=== PATIENT | female | born 1960 | race Caucasian/White ===

== ENCOUNTER 2019-10-11 09:24 | Outpatient (CLI) | payer BC, SELFPAY ==
[2019-10-11 10:22] LABS: Blood Urea Nitrogen 18 mg/dL (7-17); Carbon Dioxide 31 mmol/L (22-30); Chloride 98 mmol/L (98-107); Cholesterol 154 mg/dL (0-200); Estimated Glomerular Filt Rate > 60; Glucose 142 mg/dL (65-105); HDL Direct 64 mg/dL; Potassium 4.1 mmol/L (3.4-5.0); Sodium 135 mmol/L (137-145); Triglycerides 58 mg/dL (<150)
[2019-10-11 10:33] LABS: LDL Cholesterol Direct 75 mg/dL
[2019-10-11 10:35] LABS: Creatinine Urine 92.7 mg/dL
[2019-10-11 11:23] LABS: MALB Creatinine Ratio < 6.5 mg/g (0-30); Microalbumin Urine Random < 6.0 mg/L (0-16.7)
== END 2019-10-11 09:25 | disposition home or self-care (01) ==
PROVIDERS: PCP Physician Assistant; Visit Provider Internal Medicine Endocrinology, Diabetes & Metabolism
DX: E11.9 Type 2 diabetes mellitus without complications (principal); E88.81 Metabolic syndrome and other insulin resistance
CPT/HCPCS: 36415; 80048; 80061; 82043; 84443

== ENCOUNTER 2020-05-05 09:19 | Outpatient (CLI) | payer OTHER, SELFPAY ==
[2020-05-05 10:16] LABS: Add Urine Microscopic? YES; Appearance Urine Clear (Clear); Bacteria Urine Trace /hpf; Bilirubin Urine Negative (Negative); Blood Urine Negative (Negative); Color Urine Yellow (Yellow); Glucose Urine UA 3+ mg/dL (Negative); Ketones Urine Negative (Negative); Leukocyte Esterase Ur 3+ LEU/UL (NEGATIVE); Nitrate Urine Negative (Negative); Protein Urine Negative (Negative); Squamous Epithelial Cell Urine Many /hpf (Few); Urobilinogen Urine Negative mg/dL (<2.0)
[2020-05-05 10:20] LABS: Specific Grav Ur 1.036 (1.001-1.035)
== END 2020-05-05 09:20 | disposition home or self-care (01) ==
PROVIDERS: PCP Physician Assistant; Visit Provider Physician Assistant
DX: R31.9 Hematuria, unspecified (principal)
CPT/HCPCS: 81001

== ENCOUNTER 2020-11-09 10:49 | Outpatient (CLI) | payer OTHER, SELFPAY ==
[2020-11-09 11:31] LABS: Hematocrit 42.4 % (37.0-47.0); Hemoglobin 13.9 g/dL (12.0-15.0); Mean Corpuscular HGB Conc 32.8 g/dl (32-36); Mean Corpuscular Hemoglobin 30.5 pg (26-34); Mean Platelet Volume 9.3 fl (7.4-10.4); Platelet Count Result 236 k/mm3 (150-375); Red Blood Count 4.56 M/mm3 (4.2-5.4); Red Cell Distribution Width 13.7 % (11.5-14.5); White Blood Count 7.9 K/mm3 (4.5-10.0)
[2020-11-09 11:35] LABS: Add Urine Microscopic? YES; Appearance Urine Cloudy (Clear); Bacteria Urine Trace /hpf; Bilirubin Urine Negative (Negative); Blood Urine Negative (Negative); Color Urine Yellow (Yellow); Glucose Urine UA 3+ mg/dL (Negative); Ketones Urine Negative (Negative); Leukocyte Esterase Ur 3+ LEU/UL (NEGATIVE); Nitrate Urine Negative (Negative); Protein Urine 1+ mg/dL (Negative); Squamous Epithelial Cell Urine Many /hpf (Few); Urobilinogen Urine Negative mg/dL (<2.0)
[2020-11-09 11:38] LABS: Specific Grav Ur 1.037 (1.001-1.035)
[2020-11-09 11:52] LABS: Alanine Aminotransferase 21 U/L (4-35); Albumin Level 3.6 g/dL (3.5-5.1); Alkaline Phosphatase 93 U/L (38-126); Anion Gap 1 mmol/L (8-16); Aspartate Amino Transferase 32 U/L (14-36); Bilirubin,Total 0.7 mg/dL (0.2-1.3); Blood Urea Nitrogen 11 mg/dL (7-17); Carbon Dioxide 33 mmol/L (22-30); Chloride 105 mmol/L (98-107); Cholesterol 138 mg/dL (0-200); Estimated Glomerular Filt Rate > 60; Glucose 110 mg/dL (65-105); HDL Direct 60 mg/dL; Potassium 3.9 mmol/L (3.4-5.0); Sodium 139 mmol/L (137-145); Triglycerides 64 mg/dL (<150)
[2020-11-09 11:59] LABS: LDL Cholesterol Direct 62 mg/dL
[2020-11-09 13:05] LABS: Folic Acid > 20.0 ng/mL (2.76->20)
== END 2020-11-09 10:50 | disposition home or self-care (01) ==
LOC: ANHLAB 10:50
PROVIDERS: PCP Physician Assistant; Visit Provider Physician Assistant
DX: Z00.00 Encounter for general adult medical examination without abnormal findings (principal); R30.0 Dysuria
CPT/HCPCS: 36415; 80053; 80061; 81001; 82607; 82746; 84443; 85027; 87086; 87088

== ENCOUNTER 2021-03-11 12:28 | Outpatient (CLI) | payer OTHER, SELFPAY ==
[2021-03-11 14:12] LABS: Creatinine Urine 75.7 mg/dL
[2021-03-11 14:15] LABS: MALB Creatinine Ratio < 7.9 mg/g (0-30); Microalbumin Urine Random < 6.0 mg/L (0-16.7)
== END 2021-03-11 12:29 | disposition home or self-care (01) ==
PROVIDERS: PCP Physician Assistant; Visit Provider Internal Medicine Endocrinology, Diabetes & Metabolism
DX: E11.65 Type 2 diabetes mellitus with hyperglycemia (principal); Z79.4 Long term (current) use of insulin; I10 Essential (primary) hypertension
CPT/HCPCS: 82043

== ENCOUNTER 2021-06-13 09:59 | Outpatient (CLI) | payer OTHER, SELFPAY ==
--- NOTE | ~2021-06-13 | MM_ITS ---
EXAMINATION: MM screening [facility] BI w prashant HISTORY: Screening TECHNIQUE: Craniocaudal and mediolateral oblique 3-D tomosynthesis images were obtained and synthetic 2-D images were generated. CAD analysis was submitted and interpreted. COMPARISON: Comparison to multiple prior studies sequentially, with oldest reviewed study dated 08/2013. BREAST PARENCHYMAL COMPOSITION: There are scattered areas of fibroglandular density. FINDINGS: No significant change to benign-appearing breast calcifications. There is no evidence of zambrano spicious mass, calcification, or architectural distortion to suggest malignancy in either breast. The re has been no suspicious interval change. IMPRESSION: 1. No mammographic evidence of malignancy. 2. Recommend routine screening mammography in one year. BI-RADS Category 1: Negative Reviewed, dictated and finalized at location A.
== END 2021-06-13 10:00 | disposition home or self-care (01) ==
LOC: ANHIMG 10:00
PROVIDERS: PCP Physician Assistant; Visit Provider Obstetrics & Gynecology
DX: Z12.31 Encounter for screening mammogram for malignant neoplasm of breast (principal)
CPT/HCPCS: 77063; 77067

== ENCOUNTER 2022-01-30 12:02 | Outpatient (CLI) | payer BC, SELFPAY ==
[2022-01-30 12:44] LABS: Alanine Aminotransferase 28 U/L (6-35); Albumin Level 3.7 g/dL (3.5-5.1); Alkaline Phosphatase 122 U/L (38-126); Anion Gap 4 mmol/L (8-16); Aspartate Amino Transferase 33 U/L (14-36); Bilirubin,Total 0.7 mg/dL (0.2-1.3); Blood Urea Nitrogen 10 mg/dL (7-17); Carbon Dioxide 29 mmol/L (22-30); Chloride 104 mmol/L (98-107); Cholesterol 163 mg/dL (0-200); Estimated Glomerular Filt Rate > 60; Glucose 91 mg/dL (65-110); HDL Direct 61 mg/dL; Sodium 137 mmol/L (137-145); Triglycerides 74 mg/dL (<150)
[2022-01-30 12:55] LABS: LDL Cholesterol Direct 69 mg/dL
[2022-01-30 13:05] LABS: Creatinine Urine 77.5 mg/dL
[2022-01-30 13:10] LABS: MALB Creatinine Ratio 13.4 mg/g (0-30); Microalbumin Urine Random 10.4 mg/L (0-16.7)
== END 2022-01-30 12:03 | disposition home or self-care (01) ==
LOC: ANHLAB 12:05
PROVIDERS: PCP Physician Assistant; Visit Provider Internal Medicine Endocrinology, Diabetes & Metabolism
DX: E11.65 Type 2 diabetes mellitus with hyperglycemia (principal); G47.30 Sleep apnea, unspecified; Z79.4 Long term (current) use of insulin
CPT/HCPCS: 36415; 80053; 80061; 82043; 82607; 84443

== ENCOUNTER 2022-05-05 07:57 | Outpatient (CLI) | payer BC, SELFPAY ==
--- NOTE | 2022-05-26 11:58 | WPDSLEEPSTUD ---
Sleep Study Date of Study: 05/05/22 Ordering Provider: Brian Yates APRN Interpreting Physician: Ritika Patrick MD Sleep Study Type: Split Polysomnogram Height: 1.67 m Weight: 146.964 kg Body Mass Index: 52.7 Neck Circumference (inches): 20 [place]: 4 Reason for Sleep Study Long history of obstructive sleep apnea diagnosed 2004, using same machine since diagnosis, CPAP or BiPAP 22 cm at home; her machine is 17 years old and needs to be replaced. At one point after surgery, she was noted to stop breathing. Sleep History Naomi Saldana is a 61 year old female with obstructive sleep apnea diagnosed in 2004, on the same device since that time. She reports that she uses CPAP or BiPAP, 22 cm. Her machine is 17 years gold, and this needs to be replaced. she wakes up throughout the night. She frequently awakens from sleep feeling short of breath. She does not awaken at night with heartburn, belching or coughing. She constantly snores loudly. She occasionally has trouble sleeping with a cold. She constantly wakes up gasping for breath at night. She does not sweat excessively at night or notice her heart pounding or beating irregularly at night. She does not fall asleep during the day, does not fall asleep involuntarily or while driving. She does not have loss of muscle tone with strong emotion. She does not have difficulties during the daytime due to excessive sleepiness. 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 She does not feel paralyzed on waking or falling asleep and does not have vivid dreamlike scenes upon awakening or falling asleep. She occasionally feels afraid to go to sleep, concerned that she will stop breathing. She does not have nightmares. She occasionally remembers her dreams. She does not have racing thoughts, does not have feelings of sadness, depression or anxiety. She does not have muscular tension. She occasionally notices parts of her body jerking. She occasionally kicks at night. She does not have crawling or aching feelings in her legs. She occasionally has leg pain at night. She does not have morning jaw pain. She occasionally grinds her teeth at night. She is not bothered by pain during the day or awakened by pain at night. She occasionally wakes up feeling stiff in the morning with sore achy muscles and pain in the neck and spine. She takes antacids regularly, she is on pantoprazole for GERD. Normal bedtime is 9:00 p.m. falling asleep within 20 minutes typically waking twice at night between 2 and 4:00 a.m. to go to the bathroom, and she is able to return to sleep sometimes within 20 minutes although at times it may take 2 hours for her to fall asleep. She wakes at 5:45 a.m. on days when she works. She keeps the same schedule on weekends. She estimates getting 5 hours of sleep at night. She occasionally takes a nap after working for 8 hours. A short nap of 10 or 15 minutes is not refreshing. She is usually tired for 2 hours after waking. She feels better in afternoon compared to the morning. She has not had a change in her weight over the last year, weighs 330 lb. Habits: never smoked tobacco. Caffeine may be 1 soda on occasion. No alcohol or recreational drugs PMFSH Past Medical History Medical History (Updated 05/26/22 @ 13:25 by Ritika Patrick MD) Anal fistula Glaucoma Hyperlipidemia Hyperlipidemia LDL goal <100 Hypertension Sleep apnea with use of continuous positive airway pressure (CPAP) Type 2 diabetes mellitus with hyperglycemia Surgical History Surgical History (Reviewed 02/20/22 @ 13:23 by Lindy Quiroz [facility]) H/O rectal sphincterotomy H/O wrist surgery History of incision and drainage 06/20/21 back abscess History of tonsillectomy Hx laparoscopic cholecystectomy Family History Family History Mother Family history of malignant neoplasm of uterus Hypertension Family
[2022-05-26 15:47] VITALS: BMI 52.7
--- NOTE | 2022-09-12 12:26 | SLEEP ---
new [id number]
== END 2022-05-06 07:52 | disposition home or self-care (01) ==
LOC: ANHCSM 07:57
PROVIDERS: PCP Physician Assistant; Visit Provider Nurse Practitioner Family
DX: G47.9 Sleep disorder, unspecified (principal); G47.33 Obstructive sleep apnea (adult) (pediatric)
CPT/HCPCS: 95811

== ENCOUNTER 2022-06-29 16:29 | Emergency (ER) | payer BC, SELFPAY ==
[2022-06-29 16:44] VITALS: BP 178/67; PULSE 99; RESP 16; TEMP 36.6; O2SAT 100
--- NOTE | 2022-06-29 17:20 | ED.LOWEXIN ---
HPI - Extremity Injury (Lower) General Chief Complaint: Extremity Injury, Lower Stated Complaint: lt ankle injury Time Seen by Provider: 06/29/22 17:20 Source: patient, RN notes reviewed and old records reviewed Mode of arrival: ambulatory Limitations: no limitations History of Present Illness HPI Narrative: 61 year old female who presents to express care with swelling to medial left ankle with redness and swelling and pain of lower leg above medial ankle region with warmth., no weeping noted of skin which started yesterday. Patient reports that symptoms have increased today after being on her feet at work all day with pain increased to 8/10. Patient has no swelling or pain to left calf rgion or any warmth. Patient reports that she has been taking Aleve for her symptoms. MD complaint: other (cellulitis) Onset (ago): day(s) (day 2 of symptoms) Severity scale (1-10): 8 Treatments prior to arrival: other (aleve) Related Data Home Medications Medication Instructions Recorded Confirmed brimonidine 0.2 % eye drops 1 drop ophthalmic (eye) Q8H 09/22/19 06/29/22 latanoprost 0.005 % eye drops 1 drop ophthalmic (eye) DAILY 09/22/19 06/29/22 timolol maleate 0.5 % eye drops 1 drop ophthalmic (eye) Q12H 04/26/20 06/29/22 Allergies Allergy/AdvReac Type Severity Reaction Status Date / Time Cephalosporins Allergy Unknown Hives / Verified 06/29/22 16:53 Red Face clindamycin Allergy Unknown Hives / Verified 06/29/22 16:53 Red Face etodolac Allergy Unknown Rash Verified 06/29/22 16:53 guaifenesin Allergy Unknown Rash Verified 06/29/22 16:53 Penicillins Allergy Unknown Rash Verified 06/29/22 16:53 Quinolones Allergy Unknown Hives / Verified 06/29/22 16:53 Red Face NSAIDS (Non-Steroidal AdvReac Mild Other Verified 06/29/22 16:53 Anti-Inflamma CEPHALEXIN MONOHYDRATE Allergy Unknown Rash Uncoded 06/29/22 16:53 DEXTROMETHORPHAN HBR Allergy Unknown Rash Uncoded 06/29/22 16:53 MOXIFLOXACIN HCL Allergy Unknown Rash Uncoded 06/29/22 16:53 Review of Systems Review of Systems: CONSTITUTIONAL: Denies fever, chills, or sweats. CARDIOVASCULAR: Denies chest pain, palpitations, or edema. RESPIRATORY: Denies cough or dyspnea. SKIN: Reports swelling of left medial ankle with redness swelling and discomfort to lower leg above ankle area MUSCULOSKELETAL: Denies joint pain or myalgia. NEUROLOGIC: Denies headache, numbness, or weakness. All systems reviewed & are unremarkable except as noted in HPI and below PMFSH Past Medical History Medical History (Updated 07/04/22 @ 10:53 by Yana Thomas NP) Anal fistula Glaucoma Hyperlipidemia Hyperlipidemia LDL goal <100 Hypertension Sleep apnea with use of continuous positive airway pressure (CPAP) Type 2 diabetes mellitus with hyperglycemia Surgical History Surgical History H/O rectal sphincterotomy H/O wrist surgery History of incision and drainage 06/20/21 back abscess History of tonsillectomy Hx laparoscopic cholecystectomy Family History Family History Mother Family history of malignant neoplasm of uterus Hypertension Family history of malignant neoplasm Patient's mother is Family history of malignant neoplasm of urinary bladder Father Family history of diabetes mellitus in first degree relative Diabetes mellitus, Onset Age: 91 Family history of emphysema, Onset Age: 91 Other Cerebrovascular accident Family history of arthritis Family history of cardiovascular disease Family history of osteoporosis Social History Social History Smoking status: Never smoker Second hand tobacco smoke exposure: No Alcohol intake: never Additional living arrangements comments: roommate - legally blind also our patient Additional occupation/education comments: works at [employer] as a [employer]
== END 2022-06-29 18:13 | disposition home or self-care (01) ==
PROVIDERS: Emergency Provider Registered Nurse; PCP Physician Assistant
DX: L03.116 Cellulitis of left lower limb (principal); H40.9 Unspecified glaucoma; E78.5 Hyperlipidemia, unspecified; I10 Essential (primary) hypertension; G47.30 Sleep apnea, unspecified; E11.9 Type 2 diabetes mellitus without complications
CPT/HCPCS: 99213; G0463

== ENCOUNTER 2022-07-09 08:55 | Emergency (ER) | payer BC, SELFPAY ==
--- NOTE | 2022-07-09 09:02 | ED.URI ---
HPI - URI/Sore Throat General Chief Complaint: Extremity Problem,Nontraumatic Stated Complaint: injury/other Time Seen by Provider: 07/09/22 09:08 Source: patient Mode of arrival: ambulatory Limitations: no limitations History of Present Illness HPI Narrative: Naomi is a 61-year-old female patient presenting to the clinic today with complaints of cellulitis to the left lower leg. She reports she was seen here approximately 1 week ago was given Bactrim for this however her symptoms have not gone away. She is here to be re-evaluated and to obtain more antibiotics. She does have a doctor's appointment with her physician on Sunday. She denies any fever or chills. She reports that the area is painful and hot to touch. States that has not really gotten any worse however is not has improved Related Data Home Medications Medication Instructions Recorded Confirmed brimonidine 0.2 % eye drops 1 drop ophthalmic (eye) Q8H 09/22/19 07/09/22 latanoprost 0.005 % eye drops 1 drop ophthalmic (eye) DAILY 09/22/19 07/09/22 timolol maleate 0.5 % eye drops 1 drop ophthalmic (eye) Q12H 04/26/20 07/09/22 Allergies Allergy/AdvReac Type Severity Reaction Status Date / Time Cephalosporins Allergy Unknown Hives / Verified 07/09/22 08:56 Red Face clindamycin Allergy Unknown Hives / Verified 07/09/22 08:56 Red Face etodolac Allergy Unknown Rash Verified 07/09/22 08:56 guaifenesin Allergy Unknown Rash Verified 07/09/22 08:56 Penicillins Allergy Unknown Rash Verified 07/09/22 08:56 Quinolones Allergy Unknown Hives / Verified 07/09/22 08:56 Red Face NSAIDS (Non-Steroidal AdvReac Mild Other Verified 07/09/22 08:56 Anti-Inflamma CEPHALEXIN MONOHYDRATE Allergy Unknown Rash Uncoded 07/09/22 08:56 DEXTROMETHORPHAN HBR Allergy Unknown Rash Uncoded 07/09/22 08:56 MOXIFLOXACIN HCL Allergy Unknown Rash Uncoded 07/09/22 08:56 Review of Systems Review of Systems: Pertinent positives per HPI. Patient denies any fever, chills, rash, headache, visual changes, dizziness, cough, runny nose, sore throat, shortness of breath, chest pain, palpitations, nausea, vomiting, diarrhea, constipation, abdominal pain, or any urinary issues. [facility] Past Medical History Medical History Anal fistula Glaucoma Hyperlipidemia Hyperlipidemia LDL goal <100 Hypertension Sleep apnea with use of continuous positive airway pressure (CPAP) Type 2 diabetes mellitus with hyperglycemia Surgical History Surgical History H/O rectal sphincterotomy H/O wrist surgery History of incision and drainage 06/20/21 back abscess History of tonsillectomy Hx laparoscopic cholecystectomy Family History Family History Mother Family history of malignant neoplasm of uterus Hypertension Family history of malignant neoplasm Patient's mother is Family history of malignant neoplasm of urinary bladder Father Family history of diabetes mellitus in first degree relative Diabetes mellitus, Onset Age: 91 Family history of emphysema, Onset Age: 91 Other Cerebrovascular accident Family history of arthritis Family history of cardiovascular disease Family history of osteoporosis Social History Social History Smoking status: Never smoker Second hand tobacco smoke exposure: No Alcohol intake: never Additional living arrangements comments: roommate - legally blind also our patient Additional occupation/education comments: works at [employer] as a [employer] Comments At the time of my signature, I reviewed and agree with the nursing past medical, surgical, social, and family history. There is no relevant family history pertinent to the patient complaint. Exam Narrative: General: Well-developed, morbidly
[2022-07-09 09:07] VITALS: BP 119/55; PULSE 84; RESP 16; TEMP 36.5; O2SAT 99
== END 2022-07-09 09:17 | disposition home or self-care (01) ==
PROVIDERS: Emergency Provider Nurse Practitioner Family; PCP Physician Assistant
DX: L03.116 Cellulitis of left lower limb (principal); E78.5 Hyperlipidemia, unspecified; I10 Essential (primary) hypertension; G47.30 Sleep apnea, unspecified; E11.39 Type 2 diabetes mellitus with other diabetic ophthalmic complication; H42 Glaucoma in diseases classified elsewhere; Z79.84 Long term (current) use of oral hypoglycemic drugs
CPT/HCPCS: 99213; G0463

== ENCOUNTER 2022-07-13 08:00 | Outpatient (CLI) | payer BC, SELFPAY ==
--- NOTE | 2022-08-01 13:54 | WPDSLEEPSTUD ---
Sleep Study Date of Study: 07/13/22 Ordering Provider: Ritika Patrick MD Interpreting Physician: Ritika Patrick MD Sleep Study Type: CPAP Titration Height: 1.68 m Weight: 145.15 kg Body Mass Index: 51.6 Neck Circumference (inches): 19 [place]: 4 Reason for Sleep Study Known obstructive sleep apnea * 05/05/2022 - split night study; ?severe obstructive sleep apnea with an apnea hypopnea index of 31.6, desaturation to 85%, snoring and fragmented sleep; patient had difficulty sleeping on the baseline without PAP therapy, and had difficultly sleeping without pressure that was high enough during the titration.? She said that she could not sleep without PAP, normally uses a pressure of 22 cm at home. The patient did not have an optimal pressure during this study, returns for titration. Sleep History Naomi Saldana is a 61 year old female with obstructive sleep apnea diagnosed in 2004, on the same device since that time.? She reports that she uses CPAP or BiPAP, 22 cm. Her machine is 17 years gold, and this needs to be replaced. ? she wakes up throughout the night.? She frequently awakens from sleep feeling short of breath.? She does not awaken at night with heartburn, belching or coughing.? She constantly snores loudly.? She occasionally has trouble sleeping with a cold.? She constantly wakes up gasping for breath at night.? She does not sweat excessively at night or notice her heart pounding or beating irregularly at night.? She does not fall asleep during the day, does not fall asleep involuntarily or while driving.? ? She does not have loss of muscle tone with strong emotion.? She does not have difficulties during the daytime due to excessive sleepiness.? 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 She does not feel paralyzed on waking or falling asleep and does not have vivid dreamlike scenes upon awakening or falling asleep.? She occasionally feels afraid to go to sleep, concerned that she will stop breathing.? She does not have nightmares.? She occasionally remembers her dreams.? She does not have racing thoughts, does not have feelings of sadness, depression or anxiety.? She does not have muscular tension.? She occasionally notices parts of her body jerking.? She occasionally kicks at night.? She does not have crawling or aching feelings in her legs.? She occasionally has leg pain at night.? She does not have morning jaw pain.? She occasionally grinds her teeth at night.? She is not bothered by pain during the day or awakened by pain at night.? She occasionally wakes up feeling stiff in the morning with sore achy muscles and pain in the neck and spine.? She takes antacids regularly, she is on pantoprazole for GERD. Normal bedtime is 9:00 p.m. falling asleep within 20 minutes typically waking twice at night between 2 and 4:00 a.m. to go to the bathroom, and she is able to return to sleep sometimes within 20 minutes although at times it may take 2 hours for her to fall asleep.? She wakes at 5:45 a.m. on days when she works.? She keeps the same schedule on weekends.? She estimates getting 5 hours of sleep at night.? She occasionally takes a nap after working for 8 hours.? A short nap of 10 or 15 minutes is not refreshing.? She is usually tired for 2 hours after waking.? She feels better in afternoon compared to the morning.? She has not had a change in her weight over the last year, weighs 330 lb. Habits: ? never smoked tobacco.? Caffeine may be 1 soda on occasion.? No alcohol or recreational drugs PMFSH Past Medical History Medical History Anal fistula Glaucoma Hyperlipidemia Hyperlipidemia LDL goal <100 Hypertension Sleep apnea with use of continuous positive airway pressure (CPAP) Type 2 diabetes mellitus with hyperglycemia Surgical History Surgical History H/O rectal sphincterotomy H/O wrist surgery History of
[2022-08-01 15:18] VITALS: BMI 51.6
== END 2022-07-14 07:35 | disposition home or self-care (01) ==
LOC: ANHCSM 13:29
PROVIDERS: PCP Physician Assistant; Visit Provider Internal Medicine Critical Care Medicine
DX: G47.33 Obstructive sleep apnea (adult) (pediatric) (principal)
CPT/HCPCS: 95811

== ENCOUNTER 2023-01-15 07:17 | Outpatient (CLI) | payer BC, SELFPAY ==
[2023-01-15 08:21] LABS: Anion Gap 1 mmol/L (8-16); Blood Urea Nitrogen 9 mg/dL (7-17); Calcium 8.6 mg/dL (8.4-10.2); Carbon Dioxide 32 mmol/L (22-30); Chloride 103 mmol/L (98-107); Estimated Glomerular Filt Rate > 60; Glucose 205 mg/dL (65-110); Potassium 4.1 mmol/L (3.4-5.0); Sodium 136 mmol/L (137-145)
== END 2023-01-15 07:18 | disposition home or self-care (01) ==
LOC: ANHLAB 07:18
PROVIDERS: PCP Physician Assistant; Visit Provider Internal Medicine Endocrinology, Diabetes & Metabolism
DX: E11.65 Type 2 diabetes mellitus with hyperglycemia (principal); Z79.4 Long term (current) use of insulin
CPT/HCPCS: 36415; 80048

== ENCOUNTER 2023-02-12 09:16 | Outpatient (CLI) | payer BC, SELFPAY ==
--- NOTE | ~2023-02-12 | MM_ITS ---
EXAMINATION: MM screening [facility] BI w prashant HISTORY: Screening mammogram TECHNIQUE: Craniocaudal and mediolateral oblique 3-D tomosynthesis images were obtained and synthetic 2-D images were generated. CAD analysis was submitted and interpreted. COMPARISON: 06/13/2021, 07/05/2019, 07/30/2018 BREAST PARENCHYMAL COMPOSITION: The breasts are almost entirely fatty. FINDINGS: No suspicious mass, calcification, or architectural distortion are identified in either sarthak ast to suggest malignancy. There has been no suspicious interval change. IMPRESSION: 1. No mammographic evidence of malignancy. 2. Recommend routine screening mammography in one year. BI-RADS Category 1: Negative Reviewed, dictated and finalized at location A.
== END 2023-02-12 09:17 | disposition home or self-care (01) ==
LOC: ANHIMG 09:19
PROVIDERS: PCP Physician Assistant; Visit Provider Obstetrics & Gynecology
DX: Z12.31 Encounter for screening mammogram for malignant neoplasm of breast (principal)
CPT/HCPCS: 77063; 77067

== ENCOUNTER 2023-07-02 08:52 | Outpatient (CLI) | payer BC, SELFPAY ==
[2023-07-02 10:09] LABS: Alanine Aminotransferase 48 U/L (6-35); Albumin Level 3.8 g/dL (3.5-5.1); Alkaline Phosphatase 122 U/L (38-126); Anion Gap 6 mmol/L (8-16); Aspartate Amino Transferase 49 U/L (14-36); Bilirubin,Total 0.9 mg/dL (0.2-1.3); Blood Urea Nitrogen 12 mg/dL (7-17); Calcium 9.3 mg/dL (8.4-10.2); Carbon Dioxide 31 mmol/L (22-30); Chloride 99 mmol/L (98-107); Cholesterol 164 mg/dL (0-200); Estimated Glomerular Filt Rate > 60; Glucose 115 mg/dL (65-110); HDL Direct 66 mg/dL; Potassium 3.8 mmol/L (3.4-5.0); Sodium 136 mmol/L (137-145); Triglycerides 63 mg/dL (<150)
[2023-07-02 10:20] LABS: LDL Cholesterol Direct 70 mg/dL
== END 2023-07-02 08:53 | disposition home or self-care (01) ==
LOC: ANHLAB 08:53
PROVIDERS: PCP Physician Assistant; Visit Provider Internal Medicine Endocrinology, Diabetes & Metabolism
DX: E11.65 Type 2 diabetes mellitus with hyperglycemia (principal); E78.5 Hyperlipidemia, unspecified; E88.810 Metabolic syndrome
CPT/HCPCS: 36415; 80053; 80061; 84443

== ENCOUNTER 2023-12-21 16:22 | Emergency (ER) | payer BC, SELFPAY ==
--- NOTE | 2023-12-21 16:25 | ED.SKABFB ---
HPI - Skin/Abscess/Foreign Bdy General Chief complaint: Skin/Abscess/Foreign Body Stated complaint: LOWER ABD SWELLING/WEEPING Time Seen by Provider: 12/21/23 16:24 Source: patient Mode of arrival: ambulatory Limitations: no limitations History of Present Illness HPI narrative: Shanel is a 63-year-old female patient presenting to the clinic today with complaints of lower abdomen swelling and leg swelling. She reports that this has been going on for 3 weeks. States that her lower abdomen started to weep today and this prompted her to come into the clinic. 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 Also cannot take it in the evening time as this causes her to get up frequently in the molar night to urinate. Reports some increased shortness of breath over the past 2-3 days. Denies any chest pain currently. Oxygen saturations 99% on the room air. Does not appear to be in any respiratory distress. History of congestive heart failure, [place], morbid obesity, hypertension, and type 2 diabetes. Related Data Home Medications Medication Instructions Recorded Confirmed brimonidine 0.2 % eye drops 1 drop ophthalmic (eye) Q8H 09/22/19 12/21/23 latanoprost 0.005 % eye drops 1 drop ophthalmic (eye) DAILY 09/22/19 12/21/23 timolol maleate 0.5 % eye drops 1 drop ophthalmic (eye) Q12H 04/26/20 12/21/23 clotrimazole-betamethasone 1 See Rx Instructions .Route 12/04/22 12/21/23 %-0.05 % topical cream .COMPLEX PRN Rash nystatin 100,000 unit/gram topical See Rx Instructions .Route 12/04/22 12/21/23 cream .COMPLEX PRN Rash Allergies Allergy/AdvReac Type Severity Reaction Status Date / Time Cephalosporins Allergy Unknown Hives / Verified 12/21/23 16:31 Red Face clindamycin Allergy Unknown Hives / Verified 12/21/23 16:31 Red Face etodolac Allergy Unknown Rash Verified 12/21/23 16:31 guaifenesin Allergy Unknown Rash Verified 12/21/23 16:31 Penicillins Allergy Unknown Rash Verified 12/21/23 16:31 Quinolones Allergy Unknown Hives / Verified 12/21/23 16:31 Red Face NSAIDS (Non-Steroidal AdvReac Mild Other Verified 11/26/23 08:43 Anti-Inflamma CEPHALEXIN MONOHYDRATE Allergy Unknown Rash Uncoded 12/21/23 16:31 DEXTROMETHORPHAN HBR Allergy Unknown Rash Uncoded 12/21/23 16:31 MOXIFLOXACIN HCL Allergy Unknown Rash Uncoded 12/21/23 16:31 Review of Systems Review of Systems: Pertinent positives per HPI. Patient denies any fever, chills, rash, headache, visual changes, dizziness, cough, runny nose, sore throat, chest pain, palpitations, nausea, vomiting, diarrhea, constipation, abdominal pain, or any urinary issues. [facility] Past Medical History Medical History Acute biliary pancreatitis Anal fistula Benign essential hypertension Body mass index (BMI) greater than 50 Calculus of gallbladder Candidiasis of skin Chronic GERD Colon cancer screening Congestive heart failure Dyslipidemia associated with type 2 diabetes mellitus Gallstones Glaucoma Hyperlipidemia Hyperlipidemia Hyperlipidemia LDL goal <100 Hypertension [place] on CPAP Sleep apnea with use of continuous positive airway pressure (CPAP) Trigger finger of both hands Type 2 diabetes mellitus with hyperglycemia Surgical History Surgical History H/O rectal sphincterotomy H/O wrist surgery History of incision and drainage 06/20/21 back abscess History of tonsillectomy Hx laparoscopic cholecystectomy Family History Family History Mother Family history of malignant neoplasm of uterus Hypertension Family history of malignant neoplasm Patient's mother is Family history of malignant neoplasm of urinary bladder Father Family history of diabetes mellitus in [facility]
[2023-12-21 16:40] VITALS: BP 127/65; PULSE 82; RESP 16; TEMP 36.6; O2SAT 99
== END 2023-12-21 17:07 | disposition home or self-care (01) ==
PROVIDERS: Emergency Provider Nurse Practitioner Family; PCP Physician Assistant
DX: R60.0 Localized edema (principal); I50.9 Heart failure, unspecified; I10 Essential (primary) hypertension; E11.9 Type 2 diabetes mellitus without complications; E78.5 Hyperlipidemia, unspecified; G47.33 Obstructive sleep apnea (adult) (pediatric)
CPT/HCPCS: 99211; G0463

== ENCOUNTER 2024-01-05 13:49 | Observation (INO) | payer BC, SELFPAY ==
--- NOTE | ~2024-01-05 | CT_ITS ---
CT of the Abdomen and Pelvis: Indication: Abdominal pain Technique: 2.5 mm axial scans were obtained through the abdomen and pelvis following intravenous adm inistration of 100 cc of Omnipaque 350. Dose reduction technique was used on this scan by utilizing a utomated exposure control and iterative reconstruction technique. The dose-length product (DLP) was 1 748.91 mGy-cm. Findings: Scans through the lung bases are unremarkable. The liver, spleen, adrenals and kidneys are within normal limits. Cholecystectomy clips are present. There is mild peripancreatic inflammatory change, compatible with acute pancreatitis. No pseudocyst o r distinct pancreatic necrosis identified. No evidence of aortic aneurysm. No lymphadenopathy. No bowel obstruction or bowel wall thickening. There is no evidence to suggest acute appendicitis. Sm all to moderate fat-containing umbilical hernia present. Images through the pelvis were performed. Urinary bladder unremarkable. No pelvic mass seen. Impression: Acute pancreatitis, as detailed above. Small to moderate fat-containing umbilical hernia. Reviewed, dictated and finalized at [facility]. Impression: Acute pancreatitis, as detailed above. Small to moderate fat-containing umbilical hernia.
[2024-01-05 13:53] VITALS: BP 159/86; PULSE 96; RESP 16; TEMP 37; O2SAT 100
[2024-01-05 14:34] LABS: Basophils Percent Auto 0.3 % (0.2-1.2); Eosinophils Absolute Auto 0.1 K/mm3 (0-0.3); Eosinophils Percent Auto 0.9 % (0-4.4); Hematocrit 42.9 % (37.0-47.0); Hemoglobin 14.9 g/dL (12.0-15.0); Immature Granulocyte Absolute 0.05 K/mm3 (0.00-0.031); Immature Granulocyte Percent A 0.4 % (0-0.5); Lymphocytes Absolute Auto 1.61 K/mm3 (0.9-3.2); Lymphocytes Percent Auto 13.3 % (18.3-44.2); Mean Corpuscular HGB Conc 34.7 g/dl (32-36); Mean Corpuscular Hemoglobin 31.5 pg (26-34); Mean Corpuscular Volume 90.7 fl (80-100); Mean Platelet Volume 9.5 fl (7.4-10.4); Monocytes Absolute Auto 1.1 K/mm3 (0.1-0.6); Monocytes Percent Auto 9.4 % (2.6-8.5); Neutrophils Absolute Auto 9.2 K/mm3 (1.3-6.7); Neutrophils Percent Auto 75.7 % (45.5-73.1); Platelet Count Result 200 k/mm3 (150-375); Red Blood Count 4.73 M/mm3 (4.2-5.4); Red Cell Distribution Width 13.7 % (11.5-14.5); White Blood Count 12.1 K/mm3 (4.5-10.0)
[2024-01-05 14:45] LABS: Alanine Aminotransferase 46 U/L (6-35); Alkaline Phosphatase 141 U/L (38-126); Anion Gap 8 mmol/L (4-12); Aspartate Amino Transferase 66 U/L (14-36); Bilirubin,Total 1.5 mg/dL (0.2-1.3); Blood Urea Nitrogen 14 mg/dL (7-17); Carbon Dioxide 25 mmol/L (22-30); Chloride 102 mmol/L (98-107); Estimated CRCL calculation 117 ml/min; Estimated Glomerular Filt Rate > 60; Glucose 123 mg/dL (65-110); Lipase 360 U/L (23-300); Potassium 3.5 mmol/L (3.4-5.0); Sodium 135 mmol/L (137-145)
[2024-01-05 15:15] LABS: Appearance Urine Clear (Clear); Bacteria Urine 1+ /hpf; Bilirubin Urine Negative (Negative); Blood Urine Negative (Negative); Color Urine Yellow (Yellow); Glucose Urine UA 2+ mg/dL (Negative); Ketones Urine 1+ mg/dL (Negative); Leukocyte Esterase Ur 2+ LEU/UL (Negative); Nitrate Urine Negative (Negative); Non Pathogenic Casts 0-2; Protein Urine Trace mg/dL (Negative); RBC Urine 0-2 /hpf (0-2); Specific Grav Ur 1.026 (1.001-1.035); Squamous Epithelial Cell Urine Few /hpf (Few); pH Urine >=9.0 (5.0-9.0)
--- NOTE | 2024-01-05 15:17 | ECG_ITS ---
SEE SCANNED COPY FOR CONFIRMED REPORT MTDD
[2024-01-05 15:26] LABS: Add Urine Microscopic? YES
[2024-01-05] MEDS: ONDANSETRON INJ 4 MG/2 ML VIAL IV PUSH ×3 (15:28→20:24)
[2024-01-05] MEDS: MORPHINE SULFATE (*CRX) 4 MG/ML INJ IV PUSH (15:30)
--- NOTE | 2024-01-05 15:41 | ED.ABDPAIN ---
HPI - Abdominal Pain General Chief Complaint: Abdominal Pain <CHRISTOPHER Sauceda Last Filed: 01/05/24 19:20> Stated Complaint: ?pancreatitits <CHRISTOPHER Sauceda Last Filed: 01/05/24 19:20> Time Seen by Provider: 01/05/24 14:18 <CHRISTOPHER Sauceda Last Filed: 01/05/24 19:20> Source: patient <CHRISTOPHER Sauceda Last Filed: 01/05/24 19:20> Mode of arrival: ambulatory <CHRISTOPHER Sauceda Last Filed: 01/05/24 19:20> Limitations: no limitations <CHRISTOPHER Sauceda Last Filed: 01/05/24 19:20> History of Present Illness HPI narrative: Patient is a 63-year-old female who presents the ED with report of right upper abdominal pain. Patient reports a history of gallstone related pancreatitis and 2017 and states her current pain feels similar. Pain began last night, has been persistent and worsening throughout today. Reports significant nausea, denies vomiting. Has been unable to eat or drink due to nausea. Denies diarrhea, constipation, fevers, urinary complaints. Denies chest pain or shortness of breath. <CHRISTOPHER Sauceda Last Filed: 01/05/24 19:20> Related Data Home Medications: Home Medications Medication Instructions Recorded Confirmed brimonidine 0.2 % eye drops 1 drop ophthalmic (eye) Q8H 09/22/19 01/05/24 latanoprost 0.005 % eye drops 1 drop ophthalmic (eye) DAILY 09/22/19 01/05/24 timolol maleate 0.5 % eye drops 1 drop ophthalmic (eye) Q12H 04/26/20 01/05/24 clotrimazole-betamethasone 1 See Rx Instructions .Route 12/04/22 01/05/24 %-0.05 % topical cream .COMPLEX PRN Rash nystatin 100,000 unit/gram topical See Rx Instructions .Route 12/04/22 01/05/24 cream .COMPLEX PRN Rash <Megha Kerr PA-C - Last Filed: 01/05/24 19:20> Allergies/Adverse Reactions: Allergies Allergy/AdvReac Type Severity Reaction Status Date / Time Cephalosporins Allergy Unknown Hives / Verified 01/05/24 19:39 Red Face clindamycin Allergy Unknown Hives / Verified 01/05/24 19:39 Red Face etodolac Allergy Unknown Rash Verified 01/05/24 19:39 guaifenesin Allergy Unknown Rash Verified 01/05/24 19:39 Penicillins Allergy Unknown Rash Verified 01/05/24 19:39 Quinolones Allergy Unknown Hives / Verified 01/05/24 19:39 Red Face NSAIDS (Non-Steroidal AdvReac Mild Other Verified 01/05/24 19:39 Anti-Inflamma CEPHALEXIN MONOHYDRATE Allergy Unknown Rash Uncoded 01/05/24 13:52 DEXTROMETHORPHAN HBR Allergy Unknown Rash Uncoded 01/05/24 13:52 MOXIFLOXACIN HCL Allergy Unknown Rash Uncoded 01/05/24 13:52 <Megha Kerr PA-C - Last Filed: 01/05/24 19:20> Review of Systems Review of Systems: CONSTITUTIONAL: Denies fever, chills, or sweats. CARDIOVASCULAR: Denies chest pain. RESPIRATORY: Denies dyspnea. GASTROINTESTINAL: See HPI. GENITOURINARY: Denies dysuria or hematuria. MUSCULOSKELETAL: Denies back pain, extremity pain, myalgia. <Megha Kerr PA-C - Last Filed: 01/05/24 19:20> All systems reviewed & are unremarkable except as noted in HPI and below <Megha Kerr PA-C - Last Filed: 01/05/24 19:20> [facility] Past Medical History Medical History: Medical History Acute biliary pancreatitis Anal fistula Benign essential hypertension Body mass index (BMI) greater than 50 Calculus of gallbladder Candidiasis of skin Chronic GERD Colon cancer screening Congestive heart failure Dyslipidemia associated with type 2 diabetes mellitus Gallstones Glaucoma Hyperlipidemia Hyperlipidemia Hyperlipidemia LDL goal <100 Hypertension YASMANY on CPAP Sleep apnea with use of continuous positive airway pressure (CPAP) Trigger finger of both hands Type 2 diabetes mellitus with hyperglycemia <Megha Kerr PA-C - Last Filed: 01/05/24 19:20> Surgical History Surgical History: Surgical History (Reviewed 01/05/24 @ 16:59 by
[2024-01-05 15:48] LABS: NT Pro B Type Natriuretic Pept 72 pg/mL (19.9-100)
[2024-01-05 15:50] LABS: Troponin I < 0.012 ng/mL (0.000-0.034)
[2024-01-05 16:07] LABS: Glucose Point of Care 99 mg/dl (65-105)
[2024-01-05] MEDS: DEXTROSE 50% 25 GM/50 ML SYRINGE IV PUSH (16:14)
[2024-01-05 17:02] LABS: Glucose Point of Care 126 mg/dl (65-105)
[2024-01-05 17:20] VITALS: BP 148/70; PULSE 90; RESP 20; O2SAT 100
[2024-01-05] MEDS: SODIUM CHLORIDE 0.9% IV 1,000 ML 999 ML IV CONT ×2 (17:20)
[2024-01-05] MEDS: HYDROmorphone HCL INJ (*CRX) 1 MG/ML SYR 0.5 MG IV PUSH ×2 (17:21→21:14)
[2024-01-05 17:24] LABS: Triglycerides 65 mg/dL (<150)
--- NOTE | 2024-01-05 19:30 | ADMGEN ---
This patient, Naomi Saldana, was admitted to Medical Room 258-. Patient/family oriented to hospital policies and general routines including ID bracelet, bed and alarms, visiting hours, pain management, procedures, bathroom and other care routines, personal items, smoking policy, room service/diet, and visiting hours. Information on how to activate the Rapid Response Team has been discussed. Patient/Family are encouraged to report perceived risks to care and to ask questions if they do not understand what they are told or what they should do.
[2024-01-05 19:36] VITALS: BP 135/63; PULSE 97; RESP 18; TEMP 36.9; O2SAT 95
[2024-01-05 19:57] VITALS: BMI 51.0
--- NOTE | 2024-01-05 20:50 | PM.IMHP ---
H&P: HPI History of Present Illness Date/Time: 01/05/24 20:50 Chief Complaint: 1. Abdominal pain Narrative: Naomi Saldana is a a 63yo F with a mHx significant for cholecystectomy, obesity, glaucoma, dyslipidemia, GERD, HTN, NIDDM, HTN She presents with a new-onset, sharp RUQ abdominal pain; It radiates to the back; rated about 8-10 in intensity; aggravated by meals and drinks; alleviated by fasting; associated with anorexia, malaise and anxiety; severe enough to affect her ADLs. She denies vomiting despite nausea; denies fevers, chills, flank pain, headaches, diarrhea, constipation or dysuria. She does not smoke/chew tobacco, drink alcohol or consume recreational/illicit drugs; her family Hx is not contribuory to the Significant findings CBC with white blood cell count of 12.1.? CMP with mild elevation of liver enzymes, total bilirubin 1.5, AST 66, ALT 46, alk phos 141.? ALT/AST have been similarly elevated in the past per records.? Lipase 360. EKG is without ischemic changes.? Troponin undetectable.? UA with evidence of dehydration, possible infection though squamous cells noted. CT scan of abdomen pelvis was obtained and showing findings consistent with acute pancreatitis.?Small to moderate fat-containing umbilical hernia. Naomi Saldana will be admitted, evaluated and managed for biliary colic and acute pancreatitis. Review of Systems Constitutional: Constitutional: Reports chills, Reports fatigue and Denies lethargy Eyes: Eyes: Reports no additional eye complaints, Denies blurry vision and Denies photophobia ENT: Denies dysphagia, Denies nasal congestion and Denies nasal discharge Cardiovascular: Cardiovascular: Denies diaphoresis, Denies leg edema, Denies lightheadedness and Denies palpitations Respiratory: Respiratory: Denies chest congestion, Denies cough and Denies dyspnea on exertion Gastrointestinal: Gastrointestinal: Denies hematochezia, Denies constipation, Denies heartburn, Denies diarrhea, Reports nausea and Denies vomiting Genitourinary: Genitourinary: Denies dysmenorrhea, Denies dysuria, Denies pelvic pain, Denies flank pain, Denies urinary incontinence and Denies urinary hesitancy Musculoskeletal: Musculoskeletal: Denies joint swelling, Denies neck pain and Denies stiffness Integumentary/Breasts: Skin/Breast: Denies dry skin Neurologic: Denies abnormal gait, Denies confusion, Denies vertigo, Denies headache(s) and Denies numbness Psychiatric: Psychiatric: Reports anxiety, Denies behavioral changes, Denies confusion and Denies depression [facility] Past Medical History Medical History Acute biliary pancreatitis Anal fistula Benign essential hypertension Body mass index (BMI) greater than 50 Calculus of gallbladder Candidiasis of skin Chronic GERD Colon cancer screening Congestive heart failure Dyslipidemia associated with type 2 diabetes mellitus Gallstones Glaucoma Hyperlipidemia Hyperlipidemia Hyperlipidemia LDL goal <100 Hypertension YASMANY on CPAP Sleep apnea with use of continuous positive airway pressure (CPAP) Trigger finger of both hands Type 2 diabetes mellitus with hyperglycemia Surgical History Surgical History H/O rectal sphincterotomy H/O wrist surgery History of incision and drainage 06/20/21 back abscess History of tonsillectomy Hx laparoscopic cholecystectomy Family History Family History (Updated 01/05/24 @ 19:50 by Daron Vogt RN) Mother Family history of malignant neoplasm Family history of malignant neoplasm of urinary bladder Patient's mother is Family history of malignant neoplasm of uterus Hypertension Father Diabetes mellitus, Onset Age: 91 Family history of diabetes mellitus in first degree relative Family history of emphysema, Onset Age: 91 Lung cancer Social History Social History (Reviewed 01/05/24
[2024-01-05] MEDS: MEROPENEM 1 GM/NS 100 ML 1 GM/100 ML BAG IVPB (21:13)
[2024-01-05] MEDS: SODIUM CHLORIDE 0.9% IV 1,000 ML 100 ML IV CONT (21:15)
[2024-01-05 22:20] VITALS: PULSE 80; RESP 23; O2SAT 97
[2024-01-06] MEDS: ONDANSETRON INJ 4 MG/2 ML VIAL IV PUSH (01:14)
[2024-01-06] MEDS: HYDROmorphone HCL INJ (*CRX) 1 MG/ML SYR 0.5 MG IV PUSH ×3 (01:14→12:57)
[2024-01-06 01:48] LABS: Glucose Point of Care 181 mg/dl (65-105)
[2024-01-06] MEDS: PROMETHAZINE HCL 25 MG/ML AMPUL IM (01:53)
[2024-01-06 05:03] LABS: Basophils Percent Auto 0.3 % (0.2-1.2); Eosinophils Percent Auto 0.1 % (0-4.4); Hematocrit 40.1 % (37.0-47.0); Hemoglobin 13.3 g/dL (12.0-15.0); Immature Granulocyte Absolute 0.07 K/mm3 (0.00-0.031); Immature Granulocyte Percent A 0.6 % (0-0.5); Lymphocytes Absolute Auto 0.96 K/mm3 (0.9-3.2); Lymphocytes Percent Auto 8.1 % (18.3-44.2); Mean Corpuscular HGB Conc 33.2 g/dl (32-36); Mean Corpuscular Hemoglobin 31.4 pg (26-34); Mean Corpuscular Volume 94.6 fl (80-100); Mean Platelet Volume 9.7 fl (7.4-10.4); Monocytes Percent Auto 8.2 % (2.6-8.5); Neutrophils Absolute Auto 9.8 K/mm3 (1.3-6.7); Neutrophils Percent Auto 82.7 % (45.5-73.1); Platelet Count Result 160 k/mm3 (150-375); Red Blood Count 4.24 M/mm3 (4.2-5.4); White Blood Count 11.8 K/mm3 (4.5-10.0)
[2024-01-06 05:18] LABS: Alanine Aminotransferase 42 U/L (6-35); Albumin Level 3.2 g/dL (3.5-5.1); Alkaline Phosphatase 119 U/L (38-126); Anion Gap 5 mmol/L (4-12); Aspartate Amino Transferase 48 U/L (14-36); Bilirubin,Total 1.2 mg/dL (0.2-1.3); Blood Urea Nitrogen 11 mg/dL (7-17); Calcium 8.4 mg/dL (8.4-10.2); Carbon Dioxide 25 mmol/L (22-30); Chloride 105 mmol/L (98-107); Estimated CRCL calculation 139 ml/min; Estimated Glomerular Filt Rate > 60; Glucose 165 mg/dL (65-110); Lipase 122 U/L (23-300); Potassium 3.7 mmol/L (3.4-5.0); Sodium 135 mmol/L (137-145)
[2024-01-06 05:23] VITALS: BP 116/54; PULSE 79; RESP 18; TEMP 36.4; O2SAT 96
[2024-01-06] MEDS: MORPHINE SULFATE (*CRX) 4 MG/ML INJ IV PUSH (06:03)
[2024-01-06] MEDS: SODIUM CHLORIDE 0.9% IV 1,000 ML 100 ML IV CONT ×2 (06:03→17:48)
[2024-01-06] MEDS: MEROPENEM 1 GM/NS 100 ML 1 GM/100 ML BAG IVPB (06:05)
[2024-01-06 08:05] LABS: Glucose Point of Care 138 mg/dl (65-105)
[2024-01-06] MEDS: BRIMONIDINE TARTRATE 0.2% OP SOLN 5 ML BTL 1 DROP EACH EYE ×3 (09:38→17:49)
[2024-01-06] MEDS: amLODIPine BESYLATE 5 MG TABLET PO ×2 (09:38→12:56)
[2024-01-06] MEDS: lisinopriL 10 MG TABLET 30 MG PO ×2 (09:39→20:12)
[2024-01-06] MEDS: TIMOLOL MALEATE 0.5% OP SOLN 5 ML BOTTLE 1 DROP EACH EYE ×2 (09:39→17:51)
[2024-01-06] MEDS: PANTOPRAZOLE SOD SESQUIHYDRATE 20 MG TAB PO ×2 (09:43→12:56)
--- NOTE | 2024-01-06 10:26 | PC.NURSE ---
when administering medications this a.m, pt states she takes home meds at certain times and takes some daily meds at HS, times adjusted on orders
--- NOTE | 2024-01-06 12:12 | WPDGICN ---
Assessment and Plan Assessment and plan (1) Acute pancreatitis: Qualifiers: Acute pancreatitis complication: no infection or necrosis Pancreatitis type: unspecified pancreatitis type Qualified Code(s): K85.90 - Acute pancreatitis without necrosis or infection, unspecified Code(s): K85.90 - Acute pancreatitis without necrosis or infection, unspecified Status: Acute Assessment and Plan: TG level normal, no alcohol use CT c/w uncomplicated pancreatitis, already feeling better CL diet and if better then ok to advance no need to give antibiotics (2) Type 2 diabetes mellitus with hyperglycemia: Qualifiers: Diabetes mellitus snf insulin use: with ocean transportation intermediary use Qualified Code(s): E11.65 - Type 2 diabetes mellitus with hyperglycemia; Z79.4 - termite renewal inspector (current) use of insulin Code(s): E11.65 - Type 2 diabetes mellitus with hyperglycemia Status: Acute Assessment and Plan: on meds (3) Upper abdominal pain: Code(s): R10.10 - Upper abdominal pain, unspecified Status: Acute Assessment and Plan: much better (4) Nausea and vomiting in adult: Code(s): R11.2 - Nausea with vomiting, unspecified Status: Acute (5) Hypertension: Qualifiers: Hypertension type: primary hypertension Qualified Code(s): I10 - Essential (primary) hypertension Code(s): I10 - Essential (primary) hypertension Status: Acute GI Consult Note Consult date/time: 01/06/24 12:12 Reason for consult: pancreatitis HPI: Naomi Saldana is a 63 year old female with history of DM, pancreatitis in 2017 (was on victoza)- then underwent cholecystectomy. She came here with new onset of discomfort ruq and upper abdomen that got more severe, no triggers, she had to leave work then had nausea and vomiting. Blood work c/w pancreatitis confirmed by CT scan, mild elevated transaminases 50-60, bili 1.5 (normal now). Pain better now and tolerating liquid diet. Review of Systems Constitutional: Constitutional: Denies headache(s) and Denies weakness Eyes: Eyes: Denies blurry vision ENT: Reports Normal hearing present, Denies headache(s) and Denies neck pain Cardiovascular: Cardiovascular: Denies chest pain and Denies dyspnea Respiratory: Respiratory: Denies dyspnea Gastrointestinal: Gastrointestinal: Reports no additional gastrointestinal complaints Genitourinary: Genitourinary: Denies dysuria Musculoskeletal: Musculoskeletal: Denies neck pain Integumentary/Breasts: Skin/Breast: Denies dry skin Neurologic: Reports Normal hearing present, Denies headache(s) and Denies weakness Psychiatric: Psychiatric: Denies anxiety Endocrine: Endocrine: Denies change in body appearance Hematologic/Lymphatic: Hematologic/Lymphatic: Denies easy bleeding Allergic/Immunologic: Allergic/Immunologic: Denies urticaria PMFSH Past Medical History Medical History (Updated 01/06/24 @ 12:16 by Matt Roberts MD) Acute biliary pancreatitis Anal fistula Benign essential hypertension Body mass index (BMI) greater than 50 Calculus of gallbladder Candidiasis of skin Chronic GERD Colon cancer screening Congestive heart failure Dyslipidemia associated with type 2 diabetes mellitus Gallstones Glaucoma Hyperlipidemia Hyperlipidemia Hyperlipidemia LDL goal <100 Hypertension Nausea and vomiting in adult YASMANY on CPAP Sleep apnea with use of continuous positive airway pressure (CPAP) Trigger finger of both hands Type 2 diabetes mellitus with hyperglycemia Upper abdominal pain Surgical History Surgical History H/O rectal sphincterotomy H/O wrist surgery History of incision and drainage 06/20/21 back abscess History of tonsillectomy Hx laparoscopic cholecystectomy Family History Family History (Updated 01/05/24 @ 19:50 by Daron Vogt RN) Mother Family history of malignant neopla
[2024-01-06 12:21] LABS: Glucose Point of Care 129 mg/dl (65-105)
--- NOTE | 2024-01-06 13:44 | PM.IMPN ---
Progress Note: A&P Assessment and Plan (1) Acute pancreatitis: Qualifiers: Acute pancreatitis complication: no infection or necrosis Pancreatitis type: unspecified pancreatitis type Qualified Code(s): K85.90 - Acute pancreatitis without necrosis or infection, unspecified Code(s): K85.90 - Acute pancreatitis without necrosis or infection, unspecified Status: Acute Assessment and Plan: Patient presented to the emergency room on 01/05/2024 due to acute abdominal pain. CT abdomen pelvis revealed acute pancreatitis and small to moderate fat containing umbilical hernia. GI consulted per patient request Patient started on IV fluids at 100 mL/hr Analgesics p.r.n. Lipase 360 -> 122 Liquid diet initiated, advance as tolerated Triglyceride level normal, no alcohol use Patient given meropenem in the ED, this has since been discontinued. (2) Type 2 diabetes mellitus with hyperglycemia: Qualifiers: Diabetes mellitus salvage determiner insulin use: with retirement use Qualified Code(s): E11.65 - Type 2 diabetes mellitus with hyperglycemia; Z79.4 - detention (current) use of insulin Code(s): E11.65 - Type 2 diabetes mellitus with hyperglycemia Status: Acute Assessment and Plan: Insulin Lispro sliding scale, Accu-checks qAc and HS and Hold oral hypoglycemics Initiate hypoglycemic precautions (3) Hypertension: Qualifiers: Hypertension type: primary hypertension Qualified Code(s): I10 - Essential (primary) hypertension Code(s): I10 - Essential (primary) hypertension Status: Acute Assessment and Plan: continue home medication of amlodipine and Bumex (4) YASMANY (obstructive sleep apnea): Code(s): G47.33 - Obstructive sleep apnea (adult) (pediatric) Status: Acute Assessment and Plan: CPAP at night (5) Abnormal urinalysis: Code(s): R82.90 - Unspecified abnormal findings in urine Status: Acute Assessment and Plan: UA abnormal. Patient not actively having any urinary symptoms. Will not treat for now. Urine culture pending. Subjective Date/time seen: 01/06/24 13:44 Interval history: Patient's pain is improved. She stated this morning she was a little nauseous but did not throw. She remains afebrile. Advancing her diet. Exam Narrative: GENERAL: Comfortable, no acute distress, obese HENMT: moist mucous membranes EYES: EOM intact b/l NECK: no lymphadenopathy RESPIRATORY: clear to auscultation, no increased respiratory effort CARDIO: Regular rate and rhythm GI: soft, nontender, bowel sounds present SKIN/EXTREMITIES: no rashes, no edema, no redness or tenderness NEURO: PROM intact, answers questions appropriately, A&O x4 Objective Data Vital Signs Vital Signs: Vital Signs - 24 hr 01/05/24 13:53 01/05/24 17:20 01/05/24 19:36 Temperature 98.6 F 98.4 F Pulse Rate 96 90 97 Respiratory Rate 16 20 18 Blood Pressure 159/86 H 148/70 H 135/63 Pulse Oximetry 100 100 95 Oxygen Delivery 01/05/24 22:20 01/05/24 22:45 01/05/24 20:00 Temperature Pulse Rate 80 Respiratory Rate 23 H Blood Pressure Pulse Oximetry 97 Oxygen Delivery Autopap CPAP Room Air 01/06/24 05:23 01/06/24 08:15 Temperature 97.5 F L Pulse Rate 79 Respiratory Rate 18 Blood Pressure 116/54 L Pulse Oximetry 96 Oxygen Delivery Room Air Intake/Output Intake/Output: Intake & Output 01/03/24 01/04/24 01/05/24 01/06/24 23:59 23:59 23:59 23:59 Intake Total 2100 1448 Output Total 600 Balance 2100 848 Meds/Results Medications: Active Medications Generic Name Dose Route Start Last Admin Trade Name Freq PRN Reason Stop Dose Admin Acetaminophen 650 mg 01/06/24 08:22 Acetaminophen 325 Mg Tablet PO Q6H PRN Mild Pain (1-3) or Fever Amlodipine Besylate 5 mg 01/06/24 13:00 01/06/24 12:56 Amlodipine Besylate 5 Mg Tablet PO 5 mg
[2024-01-06 14:00] VITALS: BP 141/47; PULSE 63; RESP 18; TEMP 36.4; O2SAT 98
[2024-01-06 17:44] LABS: Glucose Point of Care 184 mg/dl (65-105)
[2024-01-06] MEDS: GLIMEPIRIDE 2 MG TABLET 4 MG PO (17:49)
[2024-01-06 19:52] VITALS: BP 122/54; PULSE 71; RESP 18; TEMP 36.8; O2SAT 98
[2024-01-06 20:00] VITALS: PULSE 71; RESP 18; O2SAT 98
[2024-01-06] MEDS: SIMVASTATIN 20 MG TABLET PO (20:12)
[2024-01-06] MEDS: LATANOPROST 0.005% OP SOLN 2.5 ML BTL 1 DROP EACH EYE (20:20)
[2024-01-06] MEDS: HYDROcodone/acetaminophen (*CRX) 5-325 MG TABLET 1 TAB PO (20:29)
[2024-01-06] MEDS: TOLNAFTATE 1% POWDER 45 GM BTL 1 APPLIC TOPICAL (20:31)
[2024-01-07 01:53] LABS: Glucose Point of Care 232 mg/dl (65-105)
[2024-01-07] MEDS: SODIUM CHLORIDE 0.9% IV 1,000 ML 100 ML IV CONT (03:31)
[2024-01-07 05:53] VITALS: BP 122/54; PULSE 65; RESP 18; TEMP 36.8; O2SAT 98
[2024-01-07 06:12] LABS: Basophils Percent Auto 0.2 % (0.2-1.2); Eosinophils Absolute Auto 0.2 K/mm3 (0-0.3); Eosinophils Percent Auto 1.8 % (0-4.4); Hematocrit 40.5 % (37.0-47.0); Hemoglobin 13.3 g/dL (12.0-15.0); Immature Granulocyte Absolute 0.03 K/mm3 (0.00-0.031); Immature Granulocyte Percent A 0.3 % (0-0.5); Lymphocytes Absolute Auto 1.41 K/mm3 (0.9-3.2); Lymphocytes Percent Auto 15.8 % (18.3-44.2); Mean Corpuscular HGB Conc 32.8 g/dl (32-36); Mean Corpuscular Hemoglobin 31.4 pg (26-34); Mean Corpuscular Volume 95.5 fl (80-100); Mean Platelet Volume 9.9 fl (7.4-10.4); Monocytes Percent Auto 10.9 % (2.6-8.5); Neutrophils Absolute Auto 6.3 K/mm3 (1.3-6.7); Platelet Count Result 173 k/mm3 (150-375); Red Blood Count 4.24 M/mm3 (4.2-5.4); Red Cell Distribution Width 14.1 % (11.5-14.5); White Blood Count 8.9 K/mm3 (4.5-10.0)
[2024-01-07 06:38] LABS: Alanine Aminotransferase 35 U/L (6-35); Albumin Level 3.1 g/dL (3.5-5.1); Alkaline Phosphatase 111 U/L (38-126); Anion Gap 2 mmol/L (4-12); Aspartate Amino Transferase 36 U/L (14-36); Bilirubin,Total 0.8 mg/dL (0.2-1.3); Blood Urea Nitrogen 10 mg/dL (7-17); Calcium 8.4 mg/dL (8.4-10.2); Carbon Dioxide 26 mmol/L (22-30); Chloride 105 mmol/L (98-107); Estimated CRCL calculation 139 ml/min; Estimated Glomerular Filt Rate > 60; Glucose 149 mg/dL (65-110); Potassium 3.3 mmol/L (3.4-5.0); Sodium 133 mmol/L (137-145)
[2024-01-07 08:04] LABS: Glucose Point of Care 144 mg/dl (65-105)
[2024-01-07 08:25] VITALS: O2SAT 98
[2024-01-07] MEDS: GLIMEPIRIDE 2 MG TABLET PO (08:41)
[2024-01-07] MEDS: lisinopriL 10 MG TABLET 30 MG PO (08:41)
[2024-01-07] MEDS: POTASSIUM CHLORIDE 10 MEQ ER TABLET PO (08:41)
[2024-01-07] MEDS: POTASSIUM CHLORIDE 20 MEQ PACKET (FOR LIQUID) PO (08:42)
[2024-01-07] MEDS: TOLNAFTATE 1% POWDER 45 GM BTL 1 APPLIC TOPICAL (08:43)
[2024-01-07] MEDS: BRIMONIDINE TARTRATE 0.2% OP SOLN 5 ML BTL 1 DROP EACH EYE (08:43)
[2024-01-07] MEDS: HYDROcodone/acetaminophen (*CRX) 5-325 MG TABLET 1 TAB PO (08:48)
[2024-01-07] MEDS: TIMOLOL MALEATE 0.5% OP SOLN 5 ML BOTTLE 1 DROP EACH EYE (08:49)
--- NOTE | 2024-01-07 09:45 | PM.DS ---
DS: Admitting Diagnosis Discharge Date 01/07/24 Admitting Diagnosis Acute pancreatitis DS: Discharge Diagnosis Discharge Diagnosis (1) Acute pancreatitis: Qualifiers: Acute pancreatitis complication: no infection or necrosis Pancreatitis type: unspecified pancreatitis type Qualified Code(s): K85.90 - Acute pancreatitis without necrosis or infection, unspecified Code(s): K85.90 - Acute pancreatitis without necrosis or infection, unspecified Status: Acute (2) Type 2 diabetes mellitus with hyperglycemia: Qualifiers: Diabetes mellitus long term care phlebotomist insulin use: with [facility] use Qualified Code(s): E11.65 - Type 2 diabetes mellitus with hyperglycemia; Z79.4 - continuous churn buttermaker (current) use of insulin Code(s): E11.65 - Type 2 diabetes mellitus with hyperglycemia Status: Acute (3) Hypertension: Qualifiers: Hypertension type: primary hypertension Qualified Code(s): I10 - Essential (primary) hypertension Code(s): I10 - Essential (primary) hypertension Status: Acute (4) YASMANY (obstructive sleep apnea): Code(s): G47.33 - Obstructive sleep apnea (adult) (pediatric) Status: Acute (5) Abnormal urinalysis: Code(s): R82.90 - Unspecified abnormal findings in urine Status: Acute DS: Summary Hospital Course Hospital Course: This is a 63-year-old female with a past medical history of obesity, glaucoma, dyslipidemia, GERD, hypertension, diabetes, post cholecystectomy the presented to the ED on 01/05/2024 due to right upper quadrant pain that radiates to the back. Pain was worse with eating and drinking and improved with fasting. She denies any nausea or vomiting, fever, chills, flank pain, diarrhea or dysuria. She was found to have a elevated white blood cell count of 12.1, mildly elevated liver enzymes, lipase of 360. Troponin negative. UA showing evidence of dehydration and possible infection although urine culture came back as no growth and patient did not have any urinary symptoms at that time. CT scan of abdomen pelvis consistent with acute pancreatitis. Patient started on IV fluids and pain medications as needed. Patient's lipase went down to normal limits. Pain was improved. Her diet was advanced as tolerated. She was tolerating a low-fiber diet on day of discharge. Advised diet changes and increased exercise as well as weight loss. Patient understands this. Labs and vital signs are stable and she is medically clear for discharge with this time. Time Spent with Patient Time attestation: Total time spent providing and/or coordinating discharge services: Exam Narrative: GENERAL: Comfortable, no acute distress, obese HENMT: moist mucous membranes EYES: EOM intact b/l NECK: no lymphadenopathy RESPIRATORY: clear to auscultation, no increased respiratory effort CARDIO: Regular rate and rhythm GI: soft, nontender, bowel sounds present SKIN/EXTREMITIES: no rashes, no edema, no redness or tenderness NEURO: PROM intact, answers questions appropriately, A&O x4 DS: Data Data Completed and Pending Labs on day of discharge: Labs from last 24 hours 01/07/24 01/07/24 01/07/24 08:02 04:38 00:00 WBC 8.9 RBC 4.24 Hgb 13.3 Hct 40.5 MCV 95.5 MCH 31.4 MCHC 32.8 RDW 14.1 Plt Count 173 MPV 9.9 Immature Gran % (Auto) 0.3 Neut % (Auto) 71.0 Lymph % (Auto) 15.8 L Bleck[place] % (Auto) 10.9 H Eos % (Auto) 1.8 Baso % (Auto) 0.2 Lymph # (Auto) 1.41 [place]ck[place] # (Auto) 1.0 H Eos # (Auto) 0.2 Baso # (Auto) 0.0 Abs Immat Gran (auto) 0.03 Absolute Neuts (auto) 6.3 Absolute Nucleated RBC 0.000 Nucleated RBC % 0.0 Sodium 133 L Potassium 3.3 L Chloride 105 Carbon Dioxide 26 Anion Gap 2 L BUN 10 Creatinine 0.50 L Estim Creat Clear Calc 139 Estimated GFR > 60 Glucose 149 H POC Capillary Glucose 144 H 232 H Calcium 8.4 Total Bilirubin 0.8 AST
== END 2024-01-07 10:50 | disposition home or self-care (01) ==
LOC: ANHED 14:42 → ANH2MED 19:02
PROVIDERS: Internal Medicine; Admitting Provider Internal Medicine; Emergency Provider Physician Assistant; PCP Physician Assistant; Visit Provider Internal Medicine
DX: K85.90 Acute pancreatitis without necrosis or infection, unspecified (principal); R82.90 Unspecified abnormal findings in urine; I50.9 Heart failure, unspecified; E78.5 Hyperlipidemia, unspecified; E11.65 Type 2 diabetes mellitus with hyperglycemia; I11.0 Hypertensive heart disease with heart failure; G47.33 Obstructive sleep apnea (adult) (pediatric); Z99.81 Dependence on supplemental oxygen; Z68.43 Body mass index [BMI] 50.0-59.9, adult; K21.9 Gastro-esophageal reflux disease without esophagitis; E66.9 Obesity, unspecified; H40.9 Unspecified glaucoma; Z79.4 Long term (current) use of insulin
CPT/HCPCS: 36415; 74177; 80053; 81001; 82948; 83690; 83880; 84478; 84484; 85025; 87086; 87088; 93005; 96361; 96372; 96374; 96375; 96376; 99285; A9270; G0378; J1170; J2185; J2270; J2405; J2550; J7030; Q9967

== ENCOUNTER 2024-05-12 08:45 | Outpatient (CLI) | payer BC, SELFPAY ==
[2024-05-12 09:19] LABS: Alanine Aminotransferase 35 U/L (6-35); Albumin Level 3.7 g/dL (3.5-5.1); Alkaline Phosphatase 123 U/L (38-126); Anion Gap 3 mmol/L (4-12); Aspartate Amino Transferase 51 U/L (14-36); Blood Urea Nitrogen 12 mg/dL (7-17); Calcium 9.1 mg/dL (8.4-10.2); Carbon Dioxide 32 mmol/L (22-30); Chloride 102 mmol/L (98-107); Cholesterol 147 mg/dL (0-200); Estimated Glomerular Filt Rate > 60; Glucose 122 mg/dL (65-110); HDL Direct 73 mg/dL; Potassium 4.1 mmol/L (3.4-5.0); Sodium 137 mmol/L (137-145); Triglycerides 62 mg/dL (<150)
[2024-05-12 09:30] LABS: LDL Cholesterol Direct 55 mg/dL
[2024-05-12 09:44] LABS: Creatinine Urine 100.4 mg/dL
[2024-05-12 09:49] LABS: MALB Creatinine Ratio 30.1 mg/g (0-30); Microalbumin Urine Random 30.2 mg/L (0-16.7)
== END 2024-05-12 08:46 | disposition home or self-care (01) ==
PROVIDERS: PCP Internal Medicine; Visit Provider Internal Medicine Endocrinology, Diabetes & Metabolism
DX: E11.65 Type 2 diabetes mellitus with hyperglycemia (principal); E78.5 Hyperlipidemia, unspecified
CPT/HCPCS: 36415; 80053; 80061; 82043

== ENCOUNTER 2025-03-26 10:26 | Outpatient (CLI) | payer MEDICARE, SELFPAY ==
--- OUTSIDE RECORDS SUMMARY | 2025-03-26 10:42 | XMS_ITS | Clinical Summary ---
Author Organization [facility] Address [address] [place] [address] Care Team Providers Care Leaflet Distributor Name Role Phone Jesse Bernabe MD Primary Care Provider [phone] Source Comments [facility],non-owned Affiliates and Associated Physician Practices is amultiple site organization consisting of ambulatory clinics and hospital sitesin [place], [place] and [place]. This disclosure is being madepursuant to the Care Everywhere program and may not contain all information available regarding this patient. Last updated 18.[facility] [employer] Allergies Active Allergy Reactions Criticality Noted Date Comments Moxifloxacin Urticaria Medium 04/02/2018 Clindamycin Urticaria Medium 04/02/2018 Guaifenesin Urticaria Medium 04/02/2018 Cephalexin Anaphylaxis High 04/02/2018 Etodolac Urticaria Medium 04/02/2018 Penicillins Rash Medium 04/02/2018 Social History Tobacco Use Types Packs/Day Years Used Date Smoking Tobacco: Never Assessed Comments Unknown Sex and Gender Information Value Date Recorded Sex Assigned at Not on file Legal Sex Female 10:15 AM CDT Gender Identity Not on file Sexual Orientation Not on file Plan of Treatment Health Maintenance Due Date Last Done Comments BONE DENSITY TESTING 1959 COLOGUARD (AGES 45-75) - COL ON CA SCREENING 1959 COLON MONITORING 1959 COLONOSCOPY - COLON CA SCREENING 1959 CT COLONOGRAPHY - COLON CA SCREENING 1959 Colorectal Cancer Screening 1959 FIT - COLON CA SCREENING 1959 FLEX SIG - COLON CA SCREENING 1959 LIPID TESTING 1959 MAMMOGRAM 1959 HIV SCREENING 11/20/1974 HEPATITIS C SCREENING 11/16/1977 DTAP/TDAP/TD VACCINES (1 - Tdap) 11/20/1978 PNEUMOCOCCAL VACCINE 50+ (1 of 1 - PCV) 11/20/2009 ZOSTER VACCINE (1 of 2) 11/20/2009 COVID-19 VACCINE (1 - 2023-2 5 season) 2024 DEPRESSION SCREENING 08/13/2024 INFLUENZA VACCINE (#1) 2025 Respiratory Syncytial Virus (RSV) Vaccine Pt: or over 60 yrs (1 - 1-dose 75+ series) 11/20/2034 HEPATITIS B VACCINE Aged Out No longe r eligible based on patient's age to complete this topic HIB VACCINE Aged Out No longer eligi ble based on patient's age to complete this topic HPV VACCINE Aged Out No longer eligi ble based on patient's age to complete this topic MENINGOCOCCAL (Group B) VACC INE SHARED DECISION-MAKING Aged Out No longer eligibl e based on patient's age to complete this topic MENINGOCOCCAL GROUPS A/C/Y/W VACCINE Aged Out No longer eligible b ased on patient's age to complete this topic [facility] Care Teams Leaflet Distributor Relationship Specialty Start Date End Date Jesse Bernabe MD [address] [place] [address] PCP - General Internal Medicine 04/06/17
[2025-03-26 11:15] LABS: Alanine Aminotransferase 32 U/L (6-35); Albumin Level 3.8 g/dL (3.5-5.1); Alkaline Phosphatase 96 U/L (38-126); Anion Gap 6 mmol/L (4-12); Aspartate Amino Transferase 50 U/L (14-36); Bilirubin,Total 1.2 mg/dL (0.2-1.3); Blood Urea Nitrogen 13 mg/dL (7-17); Calcium 9.2 mg/dL (8.4-10.2); Carbon Dioxide 28 mmol/L (22-30); Chloride 104 mmol/L (98-107); Estimated Glomerular Filt Rate > 60; Glucose 85 mg/dL (65-110); Potassium 4.2 mmol/L (3.4-5.0); Sodium 138 mmol/L (137-145); Total Protein 7.7 g/dL (6.3-8.2)
[2025-03-26 11:26] LABS: MALB Creatinine Ratio 14.8 mg/g (0-30)
== END 2025-03-26 10:27 | disposition home or self-care (01) ==
PROVIDERS: PCP Internal Medicine; Visit Provider Internal Medicine Endocrinology, Diabetes & Metabolism
DX: E11.65 Type 2 diabetes mellitus with hyperglycemia (principal)
CPT/HCPCS: 36415; 80053; 82043

== ENCOUNTER 2025-05-25 09:45 | Outpatient (CLI) | payer MEDICARE, SELFPAY ==
--- NOTE | ~2025-05-25 | DEXA_ITS ---
Bone Density Report Name: GABBIE MCCARTY Age: 64 Sex: Female Ethnicity: White Date of : 1960 Indication: postmenopausal osteoporosis; height loss; Referring Provider: ROXY BRIDGES Study: Bone densitometry was performed. Exam Date: May 25, 2025 Accession number: [id number] Bone Density: Region BMD T-score Z-score Classification AP Spine(L1-L4) 0.928 -1.1 0.7 Osteopenia Femoral Neck (Left) 0.609 -2.2 -0.6 Osteopenia Total Hip (Left) 0.763 -1.5 -0.2 Osteopenia Femoral Neck (Right) 0.654 -1.8 -0.2 Osteopenia Total Hip (Right) 0.659 -2.3 -1.1 Osteopenia Total Hip Mean 0.711 -1.9 -0.7 Osteopenia World Health Organization criteria for BMD impression classify patients as: Normal (T-score at or above -1.0), Osteopenia (T-score between -1.0 and -2.5), or Osteoporosis (T-score at or below -2.5). 10-year Fracture Risk(1): Major Osteoporotic Fracture 9.2% Hip Fracture 1.4% Reported Risk Factors: [place] (), Neck BMD=0.609, BMI=48.8 Input outside FRAX(R) limits. Adjusted to:Dtcnql=265 kg (1) FRAX(R) Version 3.08. Fracture probability calculated for an untreated patient. Fracture probability may be lower if the patient has received treatment. Previous Exams: Region Exam Age BMD T-score BMD Change BMD Change Date g/cm2 vs Baseline vs Previous AP Spine (L1-L4) 05/25/2025 64 0.928 -1.1 -0.076 (-7.5%) -0.076 (-7.5%) 05/25/2025 64 1.003 -0.4 Total Hip(Left) 05/25/2025 64 0.763 -1.5 -0.151 (-16.5% -0.151 (-16.5% 05/25/2025 64 0.914 -0.2 Total Hip(Right) 05/25/2025 64 0.659 -2.3 0.221 (50.7%)# 0.221 (50.7%)# 05/25/2025 64 0.437 -4.1 *Denotes significance at 95% confidence level, LSC for AP Spine = 0.022 g/cm2, LSC for Total Hip = 0.027 g/cm2 # Denotes dissimilar scan types or analysis methods Clinical Information Provided by Patient: Patient maximum height was 64.0 Menopause Age: 52 Onset of menses at age 11 Number of children 0 Impression: The patient has low bone mass, based on the Right Total Hip T-score. The patient has an estimated ten-year risk of hip fracture of 1.4% and an estimated ten-year risk of major fracture of 9.2%, based on the WHO FRAX algorithm. No significant bone loss was observed. Discussion: BONE DENSITY IS LOW AT ONE OR MORE SKELETAL SITES. This patient's lowest T-score is low at one or more skeletal sites. It meets the World Health Organization's (WHO) criteria for ?low bone mass? (T-score between -1.0 and -2.5). The patient's 10-year risk of fracture as calculated by FRAX is less than the threshold where pharmacological therapy is recommended by the National Osteoporosis Foundation (NOF). However, all treatment decisions require clinical judgment and consideration of individual patient factors, including patient preferences, comorbidities, previous drug use, risk factors not captured in the FRAX model (e.g., frailty, falls, vitamin D deficiency, increased bone turnover, interval significant decline in bone density) and possible under or overestimation of fracture risk by FRAX. The patient should follow a healthful lifestyle (good nutrition with adequate calcium and vitamin D, and appropriate weight-bearing exercise). Follow-Up: Consider repeating this study in 2 to 3 years to reassess this patient's status, or sooner if there is some new clinical indication. Reported by: VERA on 05/25/2025 11:02:00 AM. Reviewed, dictated and finalized at location A.
--- OUTSIDE RECORDS SUMMARY | 2025-05-25 10:29 | XMS_ITS | Clinical Summary ---
Author Organization [facility] Address [address] [place] [address] Care Team Providers Care Infection Control Practitioner Name Role Phone Jesse Bernabe MD Primary Care Provider [phone] Source Comments [facility],non-owned Affiliates and Associated Physician Practices is amultiple site organization consisting of ambulatory clinics and hospital sitesin [place], [place], [place] and [place]. This disclosure is being madepursuant to the Care Everywhere program and may not contain all information available regarding this patient. Last updated 18.[facility] [employer] Allergies Active Allergy Reactions Criticality Noted Date [...] 11/20/2009 ZOSTER VACCINE (1 of 2) 11/20/2009 DEPRESSION SCREENING 08/13/2024 COVID-19 VACCINE (1 - 2023-2 5 season) 2025 INFLUENZA VACCINE (#1) 2025 Respiratory Syncytial Virus [...] patient's age to complete this topic [facility] Care Teams Infection Control Practitioner Relationship Specialty Start Date End Date Jesse Bernabe MD [address] [place] [address] PCP - General Internal Medicine 04/06/17
== END 2025-05-25 09:46 | disposition home or self-care (01) ==
LOC: ANHFOHIMG 09:46
PROVIDERS: PCP Internal Medicine; Visit Provider Internal Medicine Endocrinology, Diabetes & Metabolism
DX: Z78.0 Asymptomatic menopausal state (principal); M85.88 Other specified disorders of bone density and structure, other site; M85.852 Other specified disorders of bone density and structure, left thigh; M85.851 Other specified disorders of bone density and structure, right thigh
CPT/HCPCS: 77080

== ENCOUNTER 2025-06-18 07:28 | Outpatient (CLI) | payer MEDICARE, SELFPAY ==
--- NOTE | ~2025-06-18 | MM_ITS ---
EXAMINATION: MM screening crystal BI w prashant HISTORY: Screening TECHNIQUE: Craniocaudal and mediolateral oblique 3-D tomosynthesis images were obtained and synthetic 2-D images were generated. CAD analysis was submitted and interpreted. COMPARISON: Comparison to multiple prior studies sequentially, with oldest reviewed study dated 07/24/2017. BREAST PARENCHYMAL COMPOSITION: The breasts are almost entirely fatty. FINDINGS: There is no evidence of suspicious mass, calcification, or architectural distortion to suggest malignancy in either breast. Scattered benign-appearing calcifications are present. IMPRESSION: 1. No mammographic evidence of malignancy. 2. Recommend routine screening mammography in one year. BI-RADS Category 2: Benign finding(s). Reviewed, dictated and finalized at location B. [employer]QUIN MOLDER
--- OUTSIDE RECORDS SUMMARY | 2025-06-18 16:28 | XMS_ITS | Clinical Summary ---
Author Organization [facility] Address [address] [place] [address] Care Team Providers Care Civilian Technician Name Role Phone Jesse Bernabe MD Primary Care Provider [phone] Source Comments [facility],non-owned Affiliates and Associated Physician Practices is amultiple site organization consisting of ambulatory clinics and hospital sitesin [place], [place], [place] and [place]. This disclosure is being madepursuant to the Care Everywhere program and may not contain all information available regarding this patient. Last updated 18.[facility] [employer] Allergies Active Allergy Reactions Criticality Noted Date [...] patient's age to complete this topic Insurance [facility] Care Teams Civilian Technician Relationship Specialty Start Date End Date Jesse Bernabe MD [address] [place] [address] PCP - General Internal Medicine 04/06/17
== END 2025-06-18 07:29 | disposition home or self-care (01) ==
LOC: ANHFOHIMG 07:29
PROVIDERS: PCP Internal Medicine; Visit Provider Obstetrics & Gynecology
DX: Z12.31 Encounter for screening mammogram for malignant neoplasm of breast (principal)
CPT/HCPCS: 77063; 77067